=== PATIENT | male | born 1940 | race Caucasian/White ===

== ENCOUNTER 2021-03-30 17:20 | Emergency (ER) | payer MEDICARE, OTHER ==
--- NOTE | 2021-03-30 18:14 | EDM.PDOC ---
ED HPI GENERAL MEDICAL PROBLEM - General Chief Complaint: Cardiovascular Problem Stated Complaint: HYPOTENSION Time Seen by Provider: 03/30/21 17:42 Source of Information: Reports: Patient, Provider, Significant Other History Limitations: Reports: No Limitations - History of Present Illness INITIAL COMMENTS - FREE TEXT/NARRATIVE: Patient presents from [facility] where he had presented with lightheadedness. He says the lightheadedness has been for 3 days. He denies any pain or pressure in chest. Denies pain in neck, jaw, shoulder, arm or anywhere else he says. Kayla Mckeon NP who saw him in clinic informed me patient was hypotensive with systolic pressure in 90's. He had HR in 130-140 range and some dyspnea. She said she had run EKGs, labs (CBC, BMP, Trop, BNP all were normal) and had talked with a hospitalist in [place], Dr. Leblanc who advised IV fluid bolus then metoprolol to reduce heart rate so rhythm could be better seen. On arrival in ER patient says he feels normal. His HR is staying 105-110 range but some 90's. BP is 135/98 and steady. He had 500 ml bolus on arrival and still running. Treatments GUIDANCE SECRETARY: Reports: EKG, IV/IO, See EMS Report - Related Data Allergies Allergy/AdvReac Type Severity Reaction Status Date / Time NSAIDS (Non-Steroidal Allergy Bronchospas Verified 03/30/21 17:36 Anti-Inflamma ms Penicillins Allergy Edema Verified 03/30/21 17:36 sulfamethoxazole Allergy Nausea Verified 03/30/21 17:36 [From Bactrim] trimethoprim [From Bactrim] Allergy Nausea Verified 03/30/21 17:36 Home Meds: Home Meds Indomethacin 50 mg PO TID PRN 03/30/21 [History] Moexipril [Univasc] 15 mg PO DAILY 03/30/21 [History] Simvastatin 40 mg PO BEDTIME 03/30/21 [History] Tamsulosin [Flomax] 0.8 mg PO DAILY 03/30/21 [History] hydroCHLOROthiazide [Hydrochlorothiazide] 25 mg PO DAILY 03/30/21 [History] metFORMIN [Glucophage] 500 mg PO BID 03/30/21 [History] ED ROS GENERAL - Review of Systems Review Of Systems: See Below Constitutional: Denies: Fever, Chills, Malaise, Weakness HEENT: Denies: Ear Pain, Throat Pain, Vision Change Respiratory: Denies: Shortness of Breath, Cough Cardiovascular: Reports: Lightheadedness. Denies: Chest Pain, Syncope GI/Abdominal: Reports: Other (hasn't been drinking much water). Denies: Abdomi nal Pain, Vomiting : Denies: Dysuria, Flank Pain Musculoskeletal: Denies: Neck Pain, Shoulder Pain, Arm Pain, Back Pain, Hand Pain, Leg Pain Skin: Denies: Cyanosis, Jaundice, Mottled, Pallor, Diaphoresis Neurological: Denies: Confusion, Dizziness, Headache, Seizure, Syncope, Trouble Speaking, Difficulty Walking Psychiatric: Denies: Agitation, Anxiety, Confusion ED EXAM, GENERAL - Physical Exam Exam: See Below Exam Limited By: No Limitations General Appearance: Alert, WD/WN, No Apparent Distress Eye Exam: Bilateral Eye: EOMI, Normal Inspection, PERRL Ears: Normal External Exam, Hearing Grossly Normal Nose: Normal Inspection, No Blood Throat/Mouth: Normal Inspection, Normal Lips, Normal Voice, No Airway Compromise Head: Atraumatic, Normocephalic Neck: Normal Inspection, Supple, Non-Tender, Full Range of Motion. No: Carotid Bruit Respiratory/Chest: No Respiratory Distress, Lungs Clear, Normal Breath Sounds Cardiovascular: Normal Peripheral Pulses, No Edema, No Murmur, Tachycardia Peripheral Pulses: 1+: Posterior Tibial (L), Posterior Tibial (R), 2+: Carotid (L), Carotid (R), Radial (L), Radial (R) GI/Abdominal: Normal Bowel Sounds, Soft Back Exam: Normal Inspection, Full Range of Motion. No: CVA Tenderness (L), CVA Tenderness (R) Extremities: Normal Inspection, Normal Range of Motion Neurological: Alert, Oriented, Normal Cognition, No Motor/Sensory Deficits Psychiatric: Normal Affect, Normal Mood Skin Exam: Warm, Dry, Intact, Normal Color, No Rash Course - Vital Signs Last Recorded V/S: Last Vital Signs Temp 98.3 F 03/30/21 17:36 Pulse 114 H 03/30/21 18:24 Resp 20 03/30/21 17:36 BP 147/73 H 03/30/21 18:24 Pulse Ox 99 03/30/21 17:36 - Orders/Labs/Meds Orders: Active Orders 24 hr Category Date Time Status EKG Documentation Completion [RC] ASDIRECTED Care 03/30/21 17:51 Active EKG 12 Lead [EK] Stat Ther 03/30/21 17:35 Ordered Meds: Medications Discontinued Medications Generic Name Dose Route Start Last Admin Trade Name [place] PRN Reason Stop Dose Admin Metoprolol Tartrate 25 mg 03/30/21 18:15 03/30/21 18:24 Metoprolol Tartrate 25 Mg Tab PO 03/30/21 18:16 25 mg ONETIME ONE Administration - Re-Assessments/Exams Free Text/Narrative Re-Assessment/Exam: 03/30/21 18:17 Patient feeling okay but still just a bit of lightheadedness. No other symptoms. He's had 800 ml of IV saline so far. BP is stable, in 135/198-145/86 range and HR is slowly coming down, running now in 90's with occasional jump to low 100's. Will give metoprolol 25 mg po which was advised by Dr. Leblanc, along with 5 mg IV when rate was in 130-140 range. 03/30/21 18:58 I discussed case with hospitalist, , who took over for Dr. Leblanc. We reviewed what Dr. Leblanc and Kayla Mckeon NP had discussed and the improvement in ER. With the wide QRS tachyarrhythmia with unknown etiology along with the hypotension will continue with the plan of transferring to [place]. Patient is okay if that is what we recommend. He is stable currently. 03/30/21 19:05 Labs were all sent over from clinic and can be scanned into this note. 03/30/21 19:09 CXR shows no evidence of effusion, infiltrate or cardiomegaly. Departure - Departure Time of Disposition: 19:16 Disposition: DC/Tfer to Acute Hospital 02 Reason for Transfer *Q: Other Condition: Good Clinical Impression: Tachycardia, Wide QRS ventricular tachycardia Hypotension Qualifiers: Hypotension type: unspecified hypotension type Qualified Code(s): I95.9 - Hypotension, unspecified Referrals: Chari Sommers MD [Primary Care Provider] - Forms: ED Department Discharge Sepsis Event Note (ED) - Evaluation Sepsis Screening Result: No Definite Risk - Focused Exam Vital Signs: Vital Signs Temp Pulse Pulse Resp BP BP Pulse Ox 03/30/21 18:24 114 H 147/73 H 03/30/21 17:36 98.3 F 111 H 20 133/94 H 99 - My Orders Last 24 Hours: My Active Orders 03/30/21 17:35 EKG 12 Lead [EK] Stat 03/30/21 17:51 EKG Documentation Completion [RC] ASDIRECTED - Assessment/Plan Last 24 Hours: My Active Orders 03/30/21 17:35 EKG 12 Lead [EK] Stat 03/30/21 17:51 EKG Documentation Completion [RC] ASDIRECTED
[2021-03-30] MEDS ORDERED: Metoprolol Tartrate 25 MG Tab PO ONE (18:15)
--- NOTE | 2021-03-30 18:42 | CR ---
[id number] RAD/RAD Chest PA And Lateral EXAM: RAD Chest PA And Lateral INDICATION: MILD DYSPNEA, TACHYCARDIA. COMPARISON: None. Discussion/impression: Cardiomediastinal silhouette is normal in size and contour. Lungs are clear. No pleural effusion or pneumothorax. Devon Mart MD 03/30/21 [id number] Thank you for allowing us to participate in the care of your patient.
== END 2021-03-30 19:42 ==
LOC: KA.ED 17:20
DX: I95.9 Hypotension, unspecified (principal); R00.0 Tachycardia, unspecified; Z88.8 Allergy status to other drugs, medicaments and biological substances; Z88.0 Allergy status to penicillin; Z88.2 Allergy status to sulfonamides; Z88.1 Allergy status to other antibiotic agents; Z79.84 Long term (current) use of oral hypoglycemic drugs; Z79.899 Other long term (current) drug therapy
CPT/HCPCS: 71046; 93005; 99284; 99285; A9270